=== PATIENT | male | born 1975 | race Two or more races ===

== ENCOUNTER 2022-10-18 23:21 | Emergency (ER) | payer OTHER ==
[~2022-10-18] VITALS: Ht 165.1 cm; Wt 81.4 kg
[2022-10-18 23:25] VITALS: TEMP 98.2
[2022-10-18] MEDS ORDERED: FLUORESCEIN SODIUM 1 MG STRIP OU ONE (23:45)
[2022-10-18] MEDS ORDERED: PROPARACAINE HCL 0.5% 15 ML OPHTHALMIC SOLUTION OU ONE (23:45)
[2022-10-18] MEDS ORDERED: ERYT3.5O8 OD (23:55)
[2022-10-19] VITALS: BP 132/64; PULSE 59; RESP 14
[2022-10-19] MEDS ORDERED: PERTUSS(ACELL),DIPH,TET VAC/PF 0.5 ML SYRINGE IM. ONE
== END 2022-10-19 00:28 | disposition home or self-care (01) ==
LOC: EMS 23:24
DX: S05.01XA Injury of conjunctiva and corneal abrasion without foreign body, right eye, initial encounter (principal); X58.XXXA Exposure to other specified factors, initial encounter; Y93.89 Activity, other specified; Y92.89 Other specified places as the place of occurrence of the external cause; Y99.8 Other external cause status
CPT/HCPCS: 90471; 90715; 99283